=== PATIENT | male | born 1990 | race Caucasian/White ===

== ENCOUNTER → 2017-02-28 | Emergency (ER) | payer OTHER ==
[~2017-02-28] VITALS: Ht 185.4 cm; Wt 100.8 kg
[~2017-02-28] MED LIST: ADDERALL10 MG PO; Augmentin PO; BENTYL20 MG PO; HYDROCODON-ACE1 EAC7 PO; IBUPROFEN600 MG PO; LORTAB 5-325 M1 EACH PO; MOXEZA3 ML RIGHT EYE; NOHOMEMEDS; Percocet 5/325,Endoc PO; Vicodin,Norco 5/325 PO; WYGESIC,DARV1 TABLET PO; ZOFRAN8 MG PO
[2017-02-28 22:58] LABS: HEMATOCRIT 48.8 % (38.0-50.0); MCH 26.9 PG (29.0-34.0); MCHC 32.4 G/DL (30.0-36.0); MCV 83.1 FL (86-99); MEAN PLAT.VOLUME 9.7 uM^3 (9.0-12.4); PLATELET COUNT 299 K/uL (156-360); RBC DIS.WIDTH-CV 12.7 % (11.8-14.6); RBC DIS.WIDTH-SD 38.5 % (39-53); RED BLOOD COUNT 5.87 M/uL (4.00-5.50); WHITE BLOOD COUNT 10.6 K/uL (4.1-10.2)
[2017-02-28 23:08] LABS: CHLORIDE 106 mEq/L (99-109); POTASSIUM 4.2 mEq/L (3.7-5.4); SODIUM 143 mEq/L (136-147)
[2017-02-28 23:09] LABS: GLUCOSE 99 mg/dL (70-99)
[2017-02-28 23:11] LABS: ANION GAP 10 MEQ/L (2-14)
[2017-02-28 23:13] LABS: GFR ESTIMATE (CALCULATED) > 59 mL/min/
[2017-02-28 23:14] LABS: UREA NITROGEN (BUN) 14 mg/dL (9-23)
[2017-02-28 23:21] LABS: TROP-I INTERPRETATION NEGATIVE; TROPONIN-I < 0.01 ng/mL (0.0-0.30)
[2017-02-28 23:55] LABS: D-DIMER ELISA 0.22 mg/L FEU (< 0.57)
[2017-02-28 23:57] LABS: TOTAL BILIRUBIN 0.4 mg/dL (0.0-1.0)
[2017-02-28 23:58] LABS: ALKALINE PHOSPHATASE 78 IU/L (3-129)
[2017-03-01] LABS: DIRECT BILIRUBIN 0.1 mg/dL (0.0-0.3)
[2017-03-01 00:01] LABS: LIPASE 9 U/L (1.0-51.0)
[2017-03-01 00:02] LABS: CREATINE KINASE 118 IU/L (1-294)
[2017-03-01 00:15] LABS: ADD MIUA? YES; BILIRUBIN NEGATIVE; BLOOD NEGATIVE; COLOR YELLOW ((YELLOW)); GLUCOSE (STRIP) NEGATIVE; KETONES NEGATIVE; LEUKOCYTES NEGATIVE; NITRITE NEGATIVE; PROTEIN (STRIP) 100; SPECIFIC GRAVITY 1.034 (1.000-1.030)
[2017-03-01 00:23] LABS: AMPHETAMINE NEGATIVE (500 ng/mL); BARBITURATES NEGATIVE (200 ng/mL); BENZODIAZEPINES NEGATIVE (150 ng/mL); COCAINE NEGATIVE (150 ng/mL); INTERNAL CONTROLS VALID? YES; METHADONE NEGATIVE (200 ng/mL); METHAMPHETAMINE NEGATIVE (500 ng/mL); OPIATES (MORPHINE) NEGATIVE (100 ng/mL); OXYCODONE NEGATIVE (100 ng/mL); PHENCYCLIDINE NEGATIVE (25 ng/mL); PROPOXYPHENE NEGATIVE (300 ng/mL); THC CANNABINOIDS NEGATIVE (50 ng/mL); TRICYCLIC ANTIDEPRESSANTS NEGATIVE (300 ng/mL)
[2017-03-01 00:27] VITALS: BP 137/80
[2017-03-01 00:28] LABS: BACTERIA RARE /HPF; EPITHELIAL CELLS NONE SEEN /HPF; MUCUS TRACE /LPF; RED BLOOD CELLS 0-5 /HPF (0-5); UCUL ADDED? NO; WHITE BLOOD CELLS 0-5 /HPF (0-5)
== END | disposition home or self-care (01) ==
LOC: EME 22:27
PROVIDERS: Emergency Medicine
DX: R07.9 Chest pain, unspecified (principal); E86.0 Dehydration; R11.2 Nausea with vomiting, unspecified; Z82.49 Family history of ischemic heart disease and other diseases of the circulatory system
CPT/HCPCS: 71020; 73590; 80048; 80076; 81003; 82550; 83690; 84484; 85027; 85379; 93005; 99281; 99284

== ENCOUNTER 2018-04-26 13:44 | Emergency (ER) | payer OTHER ==
[~2018-04-26] VITALS: Ht 185.4 cm; Wt 104.0 kg
[2018-04-26 14:26] LABS: HEMATOCRIT 48.5 % (38.0-50.0); MCH 27.9 PG (29.0-34.0); MCV 84.5 FL (86-99); PLATELET COUNT 212 K/uL (156-360); RBC DIS.WIDTH-CV 12.7 % (11.8-14.6); RBC DIS.WIDTH-SD 39.1 % (39-53); RED BLOOD COUNT 5.74 M/uL (4.00-5.50); WHITE BLOOD COUNT 12.5 K/uL (4.1-10.2)
[2018-04-26 14:36] LABS: CHLORIDE 103 mEq/L (99-109); POTASSIUM 4.7 mEq/L (3.7-5.4); SODIUM 140 mEq/L (136-147)
[2018-04-26 14:37] LABS: GLUCOSE 104 mg/dL (70-99)
[2018-04-26 14:41] LABS: CREATININE 1.1 mg/dL (0.6-1.3); GFR ESTIMATE (CALCULATED) > 59 mL/min/ (58.99-99999)
[2018-04-26 14:42] LABS: UREA NITROGEN (BUN) 10 mg/dL (9-23)
[2018-04-26 14:48] LABS: TROP-I INTERPRETATION NEGATIVE; TROPONIN-I < 0.01 ng/mL (0.0-0.30)
[2018-04-26] MEDS ORDERED: VENTOLIN HFA18 GM IH (14:49)
[2018-04-26] MEDS ORDERED: PREDNISONE20 MG PO (14:49)
[2018-04-26] MEDS ORDERED: ZITHROMAX250 MG PO (14:49)
[2018-04-26 15:31] VITALS: BP 132/75
== END 2018-04-26 15:33 | disposition home or self-care (01) ==
LOC: EME 13:44
DX: J18.9 Pneumonia, unspecified organism (principal); R94.31 Abnormal electrocardiogram [ECG] [EKG]; K21.9 Gastro-esophageal reflux disease without esophagitis; F90.9 Attention-deficit hyperactivity disorder, unspecified type; Z88.5 Allergy status to narcotic agent
CPT/HCPCS: 71046; 80048; 84484; 85027; 93005; 94640; 99281; 99284; J7512